=== PATIENT | female | born 1955 | race Caucasian/White ===

== ENCOUNTER 2016-12-23 10:12 | Emergency (ER) | payer OTHER, MEDICAID ==
[~2016-12-23] VITALS: Ht 149.9 cm; Wt 68.0 kg
[~2016-12-23 10:12] MED LIST: ARIP20TA8 PO; ASPI-1093 PO; ATEN50TA PO; ATOR20TA86 PO; DOCU-275 PO; DULO60CA44 PO; ESTR1 PO; FEXO-117 PO; IBUP-2070 PO; NITR.4 SL; PANT40TA25 PO; TRAZ-147 PO; TRAZ150 PO; VENL50 PO
[2016-12-23] MEDS ORDERED: ARIP10TA14 PO (10:37)
[2016-12-23] MEDS ORDERED: LORA1TAB3 PO (10:37)
[2016-12-23] MEDS ORDERED: ACET80TA PO (10:37)
[2016-12-23 11:40] LABS: BASOPHILS % (AUTO) 0.3 % (0.0-2.0); EOSINOPHILS % (AUTO) 0.1 % (1.0-6.0); HEMOGLOBIN 13.7 g/dL (12.0-16.0); LYMPHOCYTES # (AUTO) 1.5 K/uL (1.0-4.8); LYMPHOCYTES % (AUTO) 13.1 % (22.0-44.0); MEAN CORPUSCULAR HEMOGLOBIN 30.2 pg (26.0-34.0); MEAN CORPUSCULAR HGB CONC 32.5 G/dL (31.0-37.0); MEAN CORPUSCULAR VOLUME 93 fL (80-100); MONOCYTES # (AUTO) 0.7 K/uL (0.1-1.0); MONOCYTES % (AUTO) 6.2 % (2.0-9.0); NEUTROPHILS # (AUTO) 9.1 K/uL (1.8-7.7); NEUTROPHILS % (AUTO) 80.3 % (40.0-70.0); PLATELET COUNT (AUTO) 327 K/uL (150-450); RED BLOOD CELL COUNT(AUTO) 4.53 MIL/uL (4.00-5.20); RED CELL DISTRIBUTION WIDTH 16.2 % (11.5-14.5); WHITE BLOOD COUNT (AUTO) 11.3 K/uL (4.5-11.0)
[2016-12-23 11:52] LABS: ANION GAP 9 mmol/L (8-16); CARBON DIOXIDE 27 mmol/L (22-29); CHLORIDE 102 mmol/L (98-107); CREATININE 0.81 mg/dL (0.60-1.30); GLOMERULAR FILTR. RATE CALC > 60 mL/min (>60); POTASSIUM 3.5 mmol/L (3.5-5.1); SODIUM SERUM 138 mmol/L (136-145); UREA NITROGEN, BLOOD 10 mg/dL (7-18)
[2016-12-23 11:56] LABS: ALANINE AMINOTRANSFERASE 8 U/L (12-78); ALBUMIN 3.4 g/dL (3.4-5.0); ASPARTATE AMINOTRANSFERASE 17 U/L (15-37); BILIRUBIN,TOTAL 0.3 mg/dL (0.1-1.0); TOTAL PROTEIN, SERUM 7.2 g/dL (6.4-8.2)
[2016-12-23] MEDS ORDERED: SODIUM CHLORIDE 0.9% 1,000 ML IV ONE (12:15)
[2016-12-23] MEDS ORDERED: ONDANSETRON HCL 4 MG/2 ML VIAL IVP ONE (12:15)
[2016-12-23] MEDS ORDERED: KETOROLAC TROMETHAMINE 30 MG/ML VIAL IVP ONE (12:15)
[2016-12-23 13:30] LABS: APPEARANCE,URINE HAZY (CLEAR); GLUCOSE, URINE (UA) NEGATIVE (NEGATIVE); KETONES,URINE TRACE mg/dL (NEGATIVE); LEUKOCYTE ESTERASE ,URINE NEGATIVE (NEGATIVE); OCCULT BLOOD,URINE NEGATIVE (NEGATIVE); PH,URINE 6.5 (5.0-8.0); PROTEIN,URINE NEGATIVE (NEGATIVE)
[2016-12-23 13:31] LABS: ADD UA MICROSCOPIC NO
[2016-12-23] MEDS ORDERED: HYDROmorphone 2 MG/ML SYRINGE IVP ONE (13:45)
[2016-12-23 16:23] VITALS: BP 123/76
== END 2016-12-23 16:27 | disposition home or self-care (01) ==
LOC: EMS 10:14
DX: R10.31 Right lower quadrant pain (principal); M54.9 Dorsalgia, unspecified; G89.29 Other chronic pain; R19.7 Diarrhea, unspecified; F41.9 Anxiety disorder, unspecified; I10 Essential (primary) hypertension; E78.00 Pure hypercholesterolemia, unspecified; F17.210 Nicotine dependence, cigarettes, uncomplicated; Z88.1 Allergy status to other antibiotic agents; Z88.8 Allergy status to other drugs, medicaments and biological substances
CPT/HCPCS: 36415; 74176; 80053; 80307; 81003; 83690; 85025; 96361; 96374; 96375; 99285; 99406; J1170; J1885; J2405; J7030

== ENCOUNTER 2017-03-03 17:47 | Emergency (ER) | payer OTHER, MEDICAID ==
[~2017-03-03] VITALS: Ht 149.9 cm; Wt 65.9 kg
[~2017-03-03 17:47] MED LIST changes: +ACET80TA PO; +ARIP10TA14 PO; -ARIP20TA8 PO; +LORA1TAB3 PO; -TRAZ150 PO; -VENL50 PO; +VENL50TA44 PO
[2017-03-03] MEDS ORDERED: TYL3LL PO (18:13)
[2017-03-03] MEDS ORDERED: TraMADol HCL 50 MG TABLET PO ONE (20:00)
[2017-03-03] MEDS ORDERED: TRAZ150 PO (20:10)
[2017-03-03] MEDS ORDERED: TYL3B PO (20:10)
[2017-03-03] MEDS ORDERED: ACETAMINOPHEN/CODEINE 300-30 MG TABLET PO ONE (20:45)
[2017-03-03 20:56] VITALS: BP 118/73
== END 2017-03-03 20:57 | disposition home or self-care (01) ==
LOC: EMS 17:49
DX: S20.219A Contusion of unspecified front wall of thorax, initial encounter (principal); F17.210 Nicotine dependence, cigarettes, uncomplicated; F41.9 Anxiety disorder, unspecified; F32.9 Major depressive disorder, single episode, unspecified; M19.90 Unspecified osteoarthritis, unspecified site; I10 Essential (primary) hypertension; E78.00 Pure hypercholesterolemia, unspecified; Z90.49 Acquired absence of other specified parts of digestive tract; Z88.7 Allergy status to serum and vaccine; Z88.1 Allergy status to other antibiotic agents; Z79.82 Long term (current) use of aspirin; W22.8XXA Striking against or struck by other objects, initial encounter; Y93.01 Activity, walking, marching and hiking; Y92.009 Unspecified place in unspecified non-institutional (private) residence as the place of occurrence of the external cause; Y99.9 Unspecified external cause status
CPT/HCPCS: 71020; 99284

== ENCOUNTER → 2017-03-06 | Outpatient (CLI) | payer OTHER, MEDICAID ==
[~2017-03-06] MED LIST changes: +TRAZ150 PO; +TYL3B PO; +TYL3LL PO
== END | disposition home or self-care (01) ==
LOC: RADPV 10:19
PROVIDERS: ATTEND Orthopaedic Surgery
DX: M25.561 Pain in right knee (principal)

== ENCOUNTER → 2017-07-17 | Outpatient (CLI) | payer OTHER, MEDICAID ==
[~2017-07-17] MED LIST changes: -ACET80TA PO; -ARIP10TA14 PO; +ARIP10TA8 PO; -ASPI-1093 PO; +ASPI-1182 PO; +ESTR-95 PO; -ESTR1 PO; -FEXO-117 PO; +FEXO-59 PO; -IBUP-2070 PO; -NITR.4 SL; -TRAZ-147 PO; -TYL3LL PO
== END | disposition home or self-care (01) ==
LOC: RADPV 10:57
PROVIDERS: ATTEND Orthopaedic Surgery
DX: Z47.1 Aftercare following joint replacement surgery (principal); M79.89 Other specified soft tissue disorders; Z96.651 Presence of right artificial knee joint

== ENCOUNTER → 2017-10-25 | Outpatient (CLI) | payer OTHER, MEDICAID | END | disposition home or self-care (01) | LOC: RADPV 11:10 | PROVIDERS: ATTEND Internal Medicine | DX: J98.4 Other disorders of lung (principal); I70.0 Atherosclerosis of aorta | CPT/HCPCS: 71046 ==

== ENCOUNTER → 2017-10-27 | Outpatient (CLI) | payer OTHER, MEDICAID | END | disposition home or self-care (01) | LOC: RADPV 09:47 | PROVIDERS: ATTEND Orthopaedic Surgery | DX: Z47.1 Aftercare following joint replacement surgery (principal); M25.461 Effusion, right knee; Z96.651 Presence of right artificial knee joint ==

== ENCOUNTER 2018-07-17 12:45 | Emergency (ER) | payer OTHER, MEDICAID ==
[~2018-07-17] VITALS: Ht 149.9 cm; Wt 72.7 kg
[2018-07-17 13:13] VITALS: BP 112/70
[2018-07-17] MEDS ORDERED: METHOCARBAMOL 500 MG TABLET PO ONE (13:15)
[2018-07-17] MEDS ORDERED: KETOROLAC TROMETHAMINE 60 MG/2 ML VIAL IM ONE (13:15)
[2018-07-17] MEDS ORDERED: LORA0.5T2 PO (13:17)
[2018-07-17] MEDS ORDERED: NITR100 PO (13:17)
[2018-07-17] MEDS ORDERED: ALEN70TA48 PO (13:17)
[2018-07-17] MEDS ORDERED: ALBU8.5H8 IH (13:17)
== END 2018-07-17 14:02 | disposition home or self-care (01) ==
LOC: EMS 12:46
DX: S39.012A Strain of muscle, fascia and tendon of lower back, initial encounter (principal); F41.9 Anxiety disorder, unspecified; F32.9 Major depressive disorder, single episode, unspecified; E78.00 Pure hypercholesterolemia, unspecified; I10 Essential (primary) hypertension; F17.210 Nicotine dependence, cigarettes, uncomplicated; Z90.49 Acquired absence of other specified parts of digestive tract; Z90.89 Acquired absence of other organs; Z88.1 Allergy status to other antibiotic agents; Z88.7 Allergy status to serum and vaccine; Z88.6 Allergy status to analgesic agent; Z88.8 Allergy status to other drugs, medicaments and biological substances; Z79.82 Long term (current) use of aspirin; Z79.899 Other long term (current) drug therapy; X50.9XXA Other and unspecified overexertion or strenuous movements or postures, initial encounter; Y93.89 Activity, other specified; Y92.89 Other specified places as the place of occurrence of the external cause; Y99.8 Other external cause status
CPT/HCPCS: 96372; 99283; J1885

== ENCOUNTER 2018-12-11 20:36 | Emergency (ER) | payer OTHER ==
[~2018-12-11] VITALS: Ht 149.9 cm; Wt 68.2 kg
[~2018-12-11 20:36] MED LIST changes: +ALBU8.5H8 IH; +ALEN70TA10 PO; -DOCU-275 PO; -ESTR-95 PO; +LORA0.5T2 PO; -LORA1TAB3 PO; +NITR100C11 PO; -TYL3B PO
[2018-12-11] MEDS ORDERED: FEXO-59 PO (21:55)
[2018-12-11] MEDS ORDERED: ALEN70TA10 PO (22:00)
[2018-12-11 22:10] LABS: BASOPHILS % (AUTO) 0.3 % (0.0-2.0); EOSINOPHILS % (AUTO) 1.3 % (1.0-6.0); HEMATOCRIT 36.7 % (36-46); HEMOGLOBIN 12.4 g/dL (12.0-16.0); LYMPHOCYTES # (AUTO) 2.6 K/uL (1.0-4.8); LYMPHOCYTES % (AUTO) 18.2 % (22.0-44.0); MEAN CORPUSCULAR HEMOGLOBIN 30.6 pg (26.0-34.0); MEAN CORPUSCULAR HGB CONC 33.7 G/dL (31.0-37.0); MEAN CORPUSCULAR VOLUME 91 fL (80-100); MONOCYTES # (AUTO) 1.1 K/uL (0.1-1.0); MONOCYTES % (AUTO) 7.7 % (2.0-9.0); NEUTROPHILS # (AUTO) 10.2 K/uL (1.8-7.7); NEUTROPHILS % (AUTO) 72.5 % (40.0-70.0); PLATELET COUNT (AUTO) 343 K/uL (150-450); RED BLOOD CELL COUNT(AUTO) 4.05 MIL/uL (4.00-5.20); RED CELL DISTRIBUTION WIDTH 13.5 % (11.5-14.5)
[2018-12-11 22:25] LABS: ANION GAP 12 mmol/L (8-16); CALCIUM, TOTAL 9.7 mg/dL (8.8-10.5); CARBON DIOXIDE 25 mmol/L (22-29); CHLORIDE 100 mmol/L (98-107); CREATININE 0.91 mg/dL (0.60-1.30); GLOMERULAR FILTR. RATE CALC > 60 mL/min (>60); GLUCOSE,RANDOM 109 mg/dL (70-110); SODIUM SERUM 137 mmol/L (136-145); UREA NITROGEN, BLOOD 10 mg/dL (7-18)
[2018-12-11 22:35] LABS: ALANINE AMINOTRANSFERASE 27 U/L (12-78); ALBUMIN 2.9 g/dL (3.4-5.0); ALKALINE PHOSPHATASE 91 U/L (46-116); AMYLASE 134 U/L (25-115); ASPARTATE AMINOTRANSFERASE 25 U/L (15-37); BILIRUBIN,TOTAL 0.4 mg/dL (0.1-1.0); HCG,QUANTITATIVE 7 mIU/mL (0-6); LIPASE 1614 U/L (73-393); TOTAL PROTEIN, SERUM 7.4 g/dL (6.4-8.2)
[2018-12-11 23:34] LABS: APPEARANCE,URINE CLEAR (CLEAR); BILIRUBIN,URINE NEGATIVE (NEGATIVE); GLUCOSE, URINE (UA) NEGATIVE (NEGATIVE); KETONES,URINE NEGATIVE (NEGATIVE); LEUKOCYTE ESTERASE ,URINE TRACE (NEGATIVE); NITRATE,URINE NEGATIVE (NEGATIVE); OCCULT BLOOD,URINE NEGATIVE (NEGATIVE); PROTEIN,URINE NEGATIVE (NEGATIVE); UROBILINOGEN,URINE 0.2 mg/dL (<=1.0)
[2018-12-11 23:44] LABS: BACTERIA,URINE None Seen /HPF (None Seen); SQUAMOUS EPITHELIAL CELL,UR Rare /LPF (None Seen); WBC,URINE 0-2 /HPF (0-5)
[2018-12-12] MEDS ORDERED: ONDANSETRON HCL 4 MG/2 ML VIAL IVP ONE
[2018-12-12] MEDS ORDERED: IOVERSOL 350 MG/ML 100 ML VIAL ONE (00:45)
[2018-12-12] MEDS ORDERED: SODIUM CHLORIDE 0.9% 100 ML ONE (00:45)
[2018-12-12] MEDS ORDERED: MORPHINE SULFATE 4 MG/ML SYRINGE IVP ONE ×2 (03:00)
[2018-12-12] MEDS ORDERED: SODIUM CHLORIDE 0.9% 1,000 ML IV ONE ×2 (03:00)
[2018-12-12 03:55] VITALS: BP 109/71
== END 2018-12-12 05:09 | disposition short-term general hospital (02) ==
LOC: EMS 20:37
DX: K85.90 Acute pancreatitis without necrosis or infection, unspecified (principal); I10 Essential (primary) hypertension; E78.00 Pure hypercholesterolemia, unspecified; F32.9 Major depressive disorder, single episode, unspecified; F41.9 Anxiety disorder, unspecified; Z88.1 Allergy status to other antibiotic agents; Z88.5 Allergy status to narcotic agent; Z88.7 Allergy status to serum and vaccine; Z88.8 Allergy status to other drugs, medicaments and biological substances; Z79.899 Other long term (current) drug therapy
CPT/HCPCS: 36415; 74177; 80053; 81001; 82150; 83690; 84702; 85025; 96374; 96375; 96376; 99285; J2270; J2405; J7030 ×2; J7050; Q9967

== ENCOUNTER 2019-01-31 13:23 | Emergency (ER) | payer OTHER ==
[~2019-01-31] VITALS: Ht 149.9 cm; Wt 74.5 kg
[~2019-01-31 13:23] MED LIST changes: -ASPI-1182 PO; -NITR100C11 PO
[2019-01-31] MEDS ORDERED: ONDANSETRON HCL 4 MG/2 ML VIAL IVP ONE (14:30)
[2019-01-31] MEDS ORDERED: KETOROLAC TROMETHAMINE 30 MG/ML VIAL IVP ONE (14:30)
[2019-01-31 14:51] LABS: BASOPHILS % (AUTO) 0.2 % (0.0-2.0); EOSINOPHILS % (AUTO) 0.4 % (1.0-6.0); HEMATOCRIT 35.7 % (36-46); HEMOGLOBIN 11.7 g/dL (12.0-16.0); LYMPHOCYTES % (AUTO) 6.7 % (22.0-44.0); MEAN CORPUSCULAR HEMOGLOBIN 30.2 pg (26.0-34.0); MEAN CORPUSCULAR HGB CONC 32.7 G/dL (31.0-37.0); MEAN CORPUSCULAR VOLUME 92 fL (80-100); MONOCYTES # (AUTO) 1.1 K/uL (0.1-1.0); MONOCYTES % (AUTO) 7.2 % (2.0-9.0); NEUTROPHILS # (AUTO) 12.6 K/uL (1.8-7.7); PLATELET COUNT (AUTO) 351 K/uL (150-450); RED BLOOD CELL COUNT(AUTO) 3.87 MIL/uL (4.00-5.20); RED CELL DISTRIBUTION WIDTH 13.7 % (11.5-14.5)
[2019-01-31 14:52] LABS: NEUTROPHILS % (AUTO) 85.5 % (40.0-70.0)
[2019-01-31 14:59] LABS: CALCIUM, TOTAL 9.8 mg/dL (8.8-10.5); CREATININE 1.02 mg/dL (0.60-1.30); POTASSIUM 3.5 mmol/L (3.5-5.1)
[2019-01-31 15:05] LABS: ALBUMIN 3.1 g/dL (3.4-5.0); BILIRUBIN,TOTAL 0.3 mg/dL (0.1-1.0); TOTAL PROTEIN, SERUM 7.3 g/dL (6.4-8.2)
[2019-01-31 15:55] LABS: APPEARANCE,URINE CLEAR (CLEAR); BILIRUBIN,URINE NEGATIVE (NEGATIVE); GLUCOSE, URINE (UA) NEGATIVE (NEGATIVE); KETONES,URINE NEGATIVE (NEGATIVE); LEUKOCYTE ESTERASE ,URINE NEGATIVE (NEGATIVE); NITRATE,URINE NEGATIVE (NEGATIVE); OCCULT BLOOD,URINE NEGATIVE (NEGATIVE); PROTEIN,URINE NEGATIVE (NEGATIVE); UROBILINOGEN,URINE 0.2 mg/dL (<=1.0)
[2019-01-31] MEDS ORDERED: IOVERSOL 320 MG/ML 100 ML VIAL ONE (16:00)
[2019-01-31] MEDS ORDERED: SODIUM CHLORIDE 0.9% 100 ML ONE (16:00)
[2019-01-31] MEDS ORDERED: FentaNYL CITRATE-PF 100 MCG/2 ML VIAL IVP ONE ×3 (16:15→22:15)
[2019-01-31] MEDS ORDERED: MetroNIDAZOLE 500 MG/NACL 100 ML IV ONE (17:30)
[2019-01-31] MEDS ORDERED: SODIUM CHLORIDE 0.9% 1,000 ML IV ONE (17:30)
[2019-01-31] MEDS ORDERED: PIPERACILLIN/TAZO 3.375 GM/D5W 50 ML IV ONE (17:30)
[2019-01-31 18:03] LABS: LACTIC ACID 1.1 mmol/L (0.4-2.0)
[2019-01-31] MEDS ORDERED: GADOBUTROL 1 MMOL/ML 10 ML VIAL IVP ONE (18:17)
[2019-01-31 21:59] LABS: GLUCOSE,POINT OF CARE 115 MG/DL (70-110)
[2019-01-31 22:50] VITALS: BP 145/82
== END 2019-01-31 23:35 | disposition short-term general hospital (02) ==
LOC: EMS 13:24
DX: K85.90 Acute pancreatitis without necrosis or infection, unspecified (principal); K83.09 Other cholangitis; F41.9 Anxiety disorder, unspecified; F32.9 Major depressive disorder, single episode, unspecified; E78.00 Pure hypercholesterolemia, unspecified; I10 Essential (primary) hypertension; Z90.89 Acquired absence of other organs; Z90.49 Acquired absence of other specified parts of digestive tract; Z79.899 Other long term (current) drug therapy; Z88.1 Allergy status to other antibiotic agents; Z88.7 Allergy status to serum and vaccine; Z88.6 Allergy status to analgesic agent; Z88.8 Allergy status to other drugs, medicaments and biological substances
CPT/HCPCS: 36415; 71045; 74177; 74183; 80053; 81003; 82550; 82962; 83605; 83690; 83880; 84145; 84484; 85025; 85610; 85730; 87040; 93005; 96365; 96367; 96375; 96376; 99285; A9585; J1885; J2405; J2543; J3010; J3490; J7030; J7050; Q9967

== ENCOUNTER 2024-11-16 10:09 | Emergency (ER) | payer OTHER, MEDICAID ==
[~2024-11-16] VITALS: Ht 149.9 cm; Wt 50.0 kg
[~2024-11-16 10:09] MED LIST changes: -ALEN70TA10 PO; +ALEN70TA65 PO; +ARIP10TA38 PO; -ARIP10TA8 PO; +ATEN-72 PO; -ATEN50TA PO; +ATOR20TA PO; -ATOR20TA86 PO; +DULO-113 PO; -DULO60CA44 PO; +FEXO-270 PO; -FEXO-59 PO; -LORA0.5T2 PO; +LORA0.5T20 PO; +PANT-31 PO; -PANT40TA25 PO; -TRAZ150 PO; +TRAZ150T80 PO
[2024-11-16 10:35] VITALS: TEMP 98.8
[2024-11-16] MEDS: HYDROCODONE/ACETAMINOPHEN 5-325 MG TABLET PO ONE ×2 (11:33→12:56)
[2024-11-16 11:42] LABS: BASOPHILS % (AUTO) 0.7 % (0.0-2.0); EOSINOPHILS % (AUTO) 0.8 % (1.0-6.0); HEMATOCRIT 39.2 % (36-46); HEMOGLOBIN 13.2 g/dL (12.0-16.0); LYMPHOCYTES # (AUTO) 1.5 K/uL (1.0-4.8); LYMPHOCYTES % (AUTO) 19.9 % (22.0-44.0); MEAN CORPUSCULAR HEMOGLOBIN 34.2 pg (26.0-34.0); MEAN CORPUSCULAR HGB CONC 33.7 G/dL (31.0-37.0); MEAN CORPUSCULAR VOLUME 102 fL (80-100); MONOCYTES # (AUTO) 0.7 K/uL (0.1-1.0); MONOCYTES % (AUTO) 9.3 % (2.0-9.0); NEUTROPHILS # (AUTO) 5.2 K/uL (1.8-7.7); NEUTROPHILS % (AUTO) 69.3 % (40.0-70.0); PLATELET COUNT (AUTO) 395 K/uL (150-450); RED BLOOD CELL COUNT(AUTO) 3.86 MIL/uL (4.00-5.20); RED CELL DISTRIBUTION WIDTH 14.7 % (11.5-14.5); WHITE BLOOD COUNT (AUTO) 7.5 K/uL (4.5-11.0)
[2024-11-16 11:54] LABS: ANION GAP 8 mmol/L (8-16); CALCIUM, TOTAL 9.8 mg/dL (8.8-10.5); CARBON DIOXIDE 28 mmol/L (22-29); CHLORIDE 104 mmol/L (98-107); CREATININE 0.77 mg/dL (0.60-1.30); GLOMERULAR FILTR. RATE CALC > 60 mL/min (>60); GLUCOSE,RANDOM 90 mg/dL (70-110); SODIUM SERUM 140 mmol/L (136-145); UREA NITROGEN, BLOOD 13 mg/dL (7-18)
[2024-11-16] MEDS ORDERED: ACET-2080 PO (12:57)
[2024-11-16 13:10] VITALS: BP 135/82; PULSE 72; RESP 16; O2SAT 99
== END 2024-11-16 13:11 | disposition home or self-care (01) ==
LOC: EMS 10:20
DX: R07.81 Pleurodynia (principal); J44.9 Chronic obstructive pulmonary disease, unspecified; I10 Essential (primary) hypertension; E78.00 Pure hypercholesterolemia, unspecified; F32.A Depression, unspecified; F41.9 Anxiety disorder, unspecified; Z88.1 Allergy status to other antibiotic agents; Z88.5 Allergy status to narcotic agent; Z88.7 Allergy status to serum and vaccine; Z90.49 Acquired absence of other specified parts of digestive tract; Z90.89 Acquired absence of other organs; Z79.899 Other long term (current) drug therapy
CPT/HCPCS: 71101; 80048; 85025; 99284

== ENCOUNTER 2025-05-17 09:54 | Emergency (ER) | payer OTHER, MEDICAID ==
[~2025-05-17] VITALS: Ht 147.3 cm; Wt 56.8 kg
[~2025-05-17 09:54] MED LIST changes: +ACET-2080 PO; -DULO-113 PO; +DULO60CA73 PO; -FEXO-270 PO; +FEXO-403 PO
[2025-05-17 09:57] VITALS: BP 113/71; PULSE 87; RESP 18; TEMP 97.5; O2SAT 98
[2025-05-17 11:11] LABS: APPEARANCE,URINE CLEAR (CLEAR); GLUCOSE, URINE (UA) NEGATIVE (NEGATIVE); LEUKOCYTE ESTERASE ,URINE NEGATIVE (NEGATIVE); NITRATE,URINE NEGATIVE (NEGATIVE); OCCULT BLOOD,URINE NEGATIVE (NEGATIVE); SPECIFIC GRAVITIY, URINE 1.008 (1.003-1.030)
[2025-05-17 11:42] LABS: SQUAMOUS EPITHELIAL CELL,UR Few /LPF (None Seen)
[2025-05-17] MEDS ORDERED: PERCT PO (11:51)
[2025-05-17] MEDS ORDERED: METH-659 PO (11:52)
[2025-05-17] MEDS: OxyCODONE HCL/ACETAMINOPHEN 5-325 MG TABLET PO ONE (12:05)
== END 2025-05-17 13:15 | disposition home or self-care (01) ==
LOC: EMS 09:59
DX: S39.012A Strain of muscle, fascia and tendon of lower back, initial encounter (principal); N89.8 Other specified noninflammatory disorders of vagina; F41.9 Anxiety disorder, unspecified; F32.A Depression, unspecified; J44.9 Chronic obstructive pulmonary disease, unspecified; I10 Essential (primary) hypertension; E78.00 Pure hypercholesterolemia, unspecified; M81.0 Age-related osteoporosis without current pathological fracture; Z90.49 Acquired absence of other specified parts of digestive tract; Z90.89 Acquired absence of other organs; Z88.1 Allergy status to other antibiotic agents; Z88.5 Allergy status to narcotic agent; Z88.7 Allergy status to serum and vaccine; Z79.899 Other long term (current) drug therapy; X58.XXXA Exposure to other specified factors, initial encounter; Y93.89 Activity, other specified; Y92.89 Other specified places as the place of occurrence of the external cause; Y99.8 Other external cause status
CPT/HCPCS: 81001; 99283

== ENCOUNTER 2025-07-14 16:39 | Inpatient (IN) | payer MEDICARE, MEDICAID ==
[~2025-07-14] VITALS: Ht 147.3 cm; Wt 58.1 kg
[~2025-07-14 16:39] MED LIST changes: +METH-659 PO
[2025-07-14 18:53] LABS: COVID AG,FIA SOURCE NPH
[2025-07-14 19:09] LABS: SARS-COV2 (COVID) ANTIGEN,FIA Negative (Negative)
[2025-07-14 20:22] LABS: APPEARANCE,URINE CLEAR (CLEAR); GLUCOSE, URINE (UA) NEGATIVE (NEGATIVE); LEUKOCYTE ESTERASE ,URINE NEGATIVE (NEGATIVE); NITRATE,URINE NEGATIVE (NEGATIVE); OCCULT BLOOD,URINE TRACE (NEGATIVE); PH,URINE DRUG SCREEN 6.0 (5.0-8.0); SPECIFIC GRAVITIY, URINE 1.019 (1.003-1.030)
[2025-07-14 20:28] LABS: ALCOHOL, URINE DRUG SCREEN 50 (NEGATIVE); AMPHET/METH SCREEN,URINE NEGATIVE (NEGATIVE); BARBITURATE SCREEN, URINE NEGATIVE (NEGATIVE); CANNABINOID SCREEN,URINE NEGATIVE (NEGATIVE); COCAINE SCREEN,URINE NEGATIVE (NEGATIVE); METHADONE SCREEN, URINE NEGATIVE (NEGATIVE)
[2025-07-14 20:38] LABS: PLATELET COUNT (AUTO) 369 K/uL (150-450); RED BLOOD CELL COUNT(AUTO) 3.15 MIL/uL (4.00-5.20); RED CELL DISTRIBUTION WIDTH 15.1 % (11.5-14.5); WHITE BLOOD COUNT (AUTO) 6.7 K/uL (4.5-11.0)
[2025-07-14] MEDS ORDERED: ZOLPIDEM TARTRATE 10 MG TABLET PO PRN (21:00)
[2025-07-14] MEDS ORDERED: GuaiFENesin/D-METHORPHAN [SUGAR-FREE] 200-20MG/10 ML SYRUP UDCUP PO PRN (21:00)
[2025-07-14] MEDS ORDERED: MELATONIN 5 MG TABLET PO PRN (21:00)
[2025-07-14 21:17] LABS: CALCIUM, TOTAL 8.9 mg/dL (8.8-10.5); CREATININE 0.75 mg/dL (0.60-1.30); GLOMERULAR FILTR. RATE CALC > 60 mL/min (>60); GLUCOSE,RANDOM 90 mg/dL (70-110); SODIUM SERUM 142 mmol/L (136-145); UREA NITROGEN, BLOOD 8 mg/dL (7-18)
[2025-07-14] MEDS: THIAMINE 100 MG TABLET PO SCH (21:43)
[2025-07-14 21:45] LABS: SQUAMOUS EPITHELIAL CELL,UR Few /LPF (None Seen)
[2025-07-14] MEDS: NYSTATIN 30 GM CREAM TP SCH (21:45)
[2025-07-14] MEDS: POTASSIUM CHLORIDE 20 MEQ ER TABLET PO ONE (22:02)
[2025-07-14 22:04] VITALS: O2SAT 98
[2025-07-14] MEDS ORDERED: TraZODone HCL 150 MG TABLET PO SCH (22:51)
[2025-07-14 23:25] VITALS: BP 105/50; PULSE 79; RESP 16; O2SAT 96
[2025-07-15 08:55] LABS: CHOL/HDL RATIO 4.1 (3.9-5.7); LDL CHOL (CALC.) 151.0 mg/dL (0-130)
[2025-07-15] MEDS: MULTIVITAMINS WITH MINERALS, THERAPEUTIC TABLET PO SCH (08:55)
[2025-07-15] MEDS: FOLIC ACID 1 MG TABLET PO SCH (08:55)
[2025-07-15] MEDS: DULoxetine HCL 20 MG CAPSULE PO SCH (08:55)
[2025-07-15 09:02] VITALS: BP 113/58; PULSE 71; RESP 17; TEMP 98.3; O2SAT 95
[2025-07-15 11:50] VITALS: BP 112/76; PULSE 80; RESP 16; TEMP 97.9; O2SAT 97
[2025-07-15] MEDS: ACETAMINOPHEN 325 MG TABLET PO PRN (11:56)
[2025-07-15] MEDS: POTASSIUM CHLORIDE 20 MEQ ER TABLET PO ONE ×2 (11:56→20:36)
[2025-07-15] MEDS: BACITRACIN 28 GM OINTMENT TP SCH (16:02)
[2025-07-15] MEDS: FLUCONAZOLE 200 MG TABLET PO ONE (16:03)
[2025-07-15 20:17] VITALS: BP 105/61; PULSE 80; RESP 18; TEMP 98.6; O2SAT 98
[2025-07-15] MEDS ORDERED: TraZODone HCL 150 MG TABLET PO SCH (21:00)
[2025-07-16] VITALS (9 sets, daily range): BP systolic 118–151; BP diastolic 61–92; PULSE 74–89; RESP 16–18; TEMP 97.8–98.3; O2SAT 96–98
[2025-07-16] MEDS: ATORVASTATIN CALCIUM 40 MG TABLET PO SCH (08:10)
[2025-07-16] MEDS: CITALOPRAM HYDROBROMIDE 10 MG TABLET PO SCH (08:17)
[2025-07-16 08:59] LABS: ASPARTATE AMINOTRANSFERASE 17 U/L (15-37); CALCIUM, TOTAL 9.1 mg/dL (8.8-10.5); CREATININE 0.52 mg/dL (0.60-1.30); GLOMERULAR FILTR. RATE CALC > 60 mL/min (>60); GLUCOSE,RANDOM 93 mg/dL (70-110); SODIUM SERUM 140 mmol/L (136-145); TOTAL PROTEIN, SERUM 6.3 g/dL (6.4-8.2); UREA NITROGEN, BLOOD 7 mg/dL (7-18)
[2025-07-16] MEDS ORDERED: DENTURE CLEANSER TABLET [8'S] DT PRN (09:45)
[2025-07-16] MEDS: IBUPROFEN 600 MG TABLET PO PRN (10:16)
[2025-07-16] MEDS: DENTURE ADHESIVE 68 GM CREAM DT ONE (20:41)
[2025-07-17] VITALS (8 sets, daily range): BP systolic 128–135; BP diastolic 83–89; PULSE 68–90; RESP 17–18; TEMP 98.2–98.3; O2SAT 97–100
[2025-07-17] MEDS: DENTURE CLEANSER TABLET [8'S] DT PRN (08:40)
[2025-07-17] MEDS: PREGABALIN 25 MG CAPSULE PO SCH (08:43)
[2025-07-17] MEDS: DULoxetine HCL 20 MG CAPSULE PO SCH (08:43)
[2025-07-17] MEDS ORDERED: NITROFURANTOIN MONOHYD/M-CRYST 100 MG CAPSULE [MACROBID] PO SCH (09:00)
[2025-07-17] MEDS: PROMETHAZINE HCL 25 MG TABLET PO PRN (11:24)
[2025-07-17] MEDS: TUBERCULIN, PURIFIED PROTEIN DERIVATIVE 5 TU/0.1 ML SYRINGE ID ONE (11:26)
[2025-07-18] VITALS (7 sets, daily range): BP systolic 128–146; BP diastolic 76–91; PULSE 84–92; RESP 17–18; TEMP 97–97.9; O2SAT 95–98
[2025-07-18] MEDS: DULoxetine HCL 30 MG CAPSULE PO SCH (08:13)
[2025-07-18] MEDS: MAGNESIUM HYDROXIDE SUSPENSION 30 ML UDCUP PO PRN (09:39)
[2025-07-18] MEDS: HYDROCODONE/ACETAMINOPHEN 5-325 MG TABLET PO PRN (11:36)
[2025-07-19] VITALS (9 sets, daily range): BP systolic 100–117; BP diastolic 53–83; PULSE 63–94; RESP 16–18; TEMP 97.5–98.2; O2SAT 95–99
[2025-07-19] MEDS: DULoxetine HCL 20 MG CAPSULE PO SCH (08:25)
[2025-07-19 09:56] LABS: APPEARANCE,URINE CLEAR (CLEAR); GLUCOSE, URINE (UA) NEGATIVE (NEGATIVE); LEUKOCYTE ESTERASE ,URINE NEGATIVE (NEGATIVE); NITRATE,URINE NEGATIVE (NEGATIVE); OCCULT BLOOD,URINE NEGATIVE (NEGATIVE); SPECIFIC GRAVITIY, URINE 1.008 (1.003-1.030)
[2025-07-20] VITALS (10 sets, daily range): BP systolic 101–140; BP diastolic 57–83; PULSE 63–100; RESP 16–18; TEMP 97.6–97.8; O2SAT 96–99
[2025-07-20] MEDS: LOPERAMIDE HCL 2 MG CAPSULE PO PRN (15:38)
[2025-07-21 05:42] VITALS: BP 133/77; PULSE 72; RESP 18; O2SAT 97
[2025-07-21 06:44] VITALS: RESP 18
[2025-07-21 08:26] VITALS: BP 103/64; PULSE 62; RESP 17; TEMP 98.1; O2SAT 95
[2025-07-21] MEDS: PREGABALIN 50 MG CAPSULE PO SCH (17:16)
[2025-07-21 20:46] VITALS: BP 113/78; PULSE 77; RESP 17; TEMP 97.8; O2SAT 99
[2025-07-22] VITALS (7 sets, daily range): BP systolic 100–127; BP diastolic 67–78; PULSE 68–86; RESP 16–18; TEMP 97.5–98.8; O2SAT 95–98
[2025-07-22] MEDS: DULoxetine HCL 60 MG CAPSULE PO SCH (08:44)
[2025-07-23] VITALS (8 sets, daily range): BP systolic 102–119; BP diastolic 68–75; PULSE 66–95; RESP 16–18; TEMP 98.2–98.9; O2SAT 97–100
[2025-07-23] MEDS: MAG HYDROX/ALUMINUM HYD/SIMETH ES 30 ML SUSPENSION UDCUP PO PRN (10:20)
[2025-07-23] MEDS: PREGABALIN 75 MG CAPSULE PO SCH (12:34)
[2025-07-23] MEDS ORDERED: TRAZ-257 PO (23:24)
[2025-07-23] MEDS ORDERED: DULO20CA23 PO (23:24)
[2025-07-23] MEDS ORDERED: MELA5TAB40 PO (23:24)
[2025-07-23] MEDS ORDERED: PREG75 PO (23:24)
[2025-07-24 05:15] VITALS: BP 140/77; PULSE 87; RESP 18; O2SAT 97
[2025-07-24 05:56] VITALS: RESP 18
[2025-07-24] MEDS: DULoxetine HCL 20 MG CAPSULE PO SCH (08:09)
[2025-07-24 08:46] VITALS: BP 118/87; PULSE 82; RESP 17; TEMP 97.2; O2SAT 97
[2025-07-24 09:09] VITALS: RESP 18
[2025-07-24] MEDS ORDERED: TRAZ-257 PO (14:37)
[2025-07-24] MEDS ORDERED: DULO20CA23 PO (14:37)
[2025-07-24] MEDS ORDERED: MELA5TAB40 PO (14:37)
== END 2025-07-24 12:00 | disposition home or self-care (01) | DRG 885 ==
LOC: EMS 16:39 → B2X 22:10 → B2S 07-21 10:48 → B2X 07-23 20:01
PROVIDERS: ADMIT Psychiatry & Neurology Psychiatry; ATTEND Psychiatry & Neurology Psychiatry
PROC: GZHZZZZ Group Psychotherapy (ICD-10-PCS; principal; 2025-07-15)
PROC: GZ58ZZZ Individual Psychotherapy, Cognitive-Behavioral (ICD-10-PCS; 2025-07-15)
PROC: GZ56ZZZ Individual Psychotherapy, Supportive (ICD-10-PCS; 2025-07-15)
DX: F33.2 Major depressive disorder, recurrent severe without psychotic features (principal); R45.851 Suicidal ideations; Z20.822 Contact with and (suspected) exposure to COVID-19; K21.9 Gastro-esophageal reflux disease without esophagitis; J44.9 Chronic obstructive pulmonary disease, unspecified; I10 Essential (primary) hypertension; F41.9 Anxiety disorder, unspecified; B37.31 Acute candidiasis of vulva and vagina; E78.00 Pure hypercholesterolemia, unspecified; F17.210 Nicotine dependence, cigarettes, uncomplicated; F43.10 Post-traumatic stress disorder, unspecified; G89.29 Other chronic pain; L30.4 Erythema intertrigo; M79.7 Fibromyalgia; M81.0 Age-related osteoporosis without current pathological fracture; Z60.8 Other problems related to social environment; Z90.49 Acquired absence of other specified parts of digestive tract; Z87.440 Personal history of urinary (tract) infections; Z65.3 Problems related to other legal circumstances; Z63.9 Problem related to primary support group, unspecified; Z59.9 Problem related to housing and economic circumstances, unspecified; Z55.9 Problems related to education and literacy, unspecified; Z88.5 Allergy status to narcotic agent; Z88.7 Allergy status to serum and vaccine; Z91.51 Personal history of suicidal behavior; Z79.899 Other long term (current) drug therapy
CPT/HCPCS: 80048; 80053; 80061; 80307; 81001; 81003; 83036; 84439; 84443; 85025; 86592; 93005; 99285; G0480; G0481

== ENCOUNTER 2025-07-22 18:49 | Emergency (ER) | payer MEDICARE, MEDICAID ==
[~2025-07-22] VITALS: Ht 172.7 cm; Wt 58.0 kg
[2025-07-22 19:41] VITALS: BP 122/78; PULSE 72; RESP 16; TEMP 98; O2SAT 98
[2025-07-22] MEDS: OxyCODONE HCL 5 MG IR TABLET PO ONE (19:45)
[2025-07-23] MEDS ORDERED: DULO20CA23 PO (23:24)
[2025-07-23] MEDS ORDERED: TRAZ-257 PO (23:24)
[2025-07-23] MEDS ORDERED: MELA5TAB40 PO (23:24)
[2025-07-23] MEDS ORDERED: PREG75 PO (23:24)
== END 2025-07-22 23:54 ==
LOC: EMS 18:49
DX: S09.90XA Unspecified injury of head, initial encounter (principal); F41.9 Anxiety disorder, unspecified; I10 Essential (primary) hypertension; J44.9 Chronic obstructive pulmonary disease, unspecified; M19.90 Unspecified osteoarthritis, unspecified site; F32.A Depression, unspecified; E78.00 Pure hypercholesterolemia, unspecified; Z88.1 Allergy status to other antibiotic agents; Z88.7 Allergy status to serum and vaccine; Z90.89 Acquired absence of other organs; Z88.5 Allergy status to narcotic agent; Z90.49 Acquired absence of other specified parts of digestive tract; Z79.899 Other long term (current) drug therapy; W19.XXXA Unspecified fall, initial encounter; Y93.89 Activity, other specified; Y92.89 Other specified places as the place of occurrence of the external cause; Y99.8 Other external cause status
CPT/HCPCS: 70450; 70486; 72125; 99284